=== PATIENT | female | born 1935 | race Caucasian/White ===

== ENCOUNTER 2020-07-01 15:27 | Inpatient (IN) | payer OTHER ==
[2020-07-01] VITALS (8 sets, daily range): BP systolic 60–104; BP diastolic 41–71
[~2020-07-01] VITALS: Ht 160 cm; Wt 59.0 kg
[2020-07-01] MEDS ORDERED: DOCU-141 PO (15:50)
[2020-07-01] MEDS ORDERED: ACET-2605 PO (15:50)
[2020-07-01] MEDS ORDERED: METO25TA20 PO (15:50)
[2020-07-01] MEDS ORDERED: CLOP75TA15 PO (15:50)
[2020-07-01] MEDS ORDERED: NA P133E RC (15:50)
[2020-07-01] MEDS ORDERED: CHOL100062 PO (15:50)
[2020-07-01] MEDS ORDERED: ACET-868 PO (15:50)
[2020-07-01] MEDS ORDERED: OMEG-167 PO (15:50)
[2020-07-01] MEDS ORDERED: BISA10SU11 RC (15:50)
[2020-07-01] MEDS ORDERED: ASPI-1169 PO (15:50)
[2020-07-01] MEDS ORDERED: ASCO-352 PO (15:50)
[2020-07-01] MEDS ORDERED: MAGN400O6 PO (15:50)
[2020-07-01] MEDS ORDERED: ATOR40TA PO (15:50)
[2020-07-01] MEDS ORDERED: ENAL2.5T17 PO (15:50)
[2020-07-01] MEDS ORDERED: MULT-447 PO (15:50)
--- NOTE | 2020-07-01 16:21 | NUR ---
Patient jonathan, from sn[facility], noted blood in stool and hypotension. On room air, breathing evenly and unlabored. Connected to the monitor and pulse ox. Kept comfortable, will continue to monitor accordingly. IV access initiated and blood drawned and sent to lab.
[2020-07-01] MEDS ORDERED: CEFTRIAXONE 1GM BAG (ER ONLY) 50 ML IV ONE (16:24)
[2020-07-01] MEDS ORDERED: CEFTRIAXONE 1 G in IV D5W 50 ML IV ONE (16:30)
[2020-07-01 16:49] LABS: BASOPHILS # (AUTO) 0.1 /CMM (0.0-0.2); BASOPHILS % (AUTO) 0.4 % (0.0-2.0); EOSINOPHILS % (AUTO) 0.4 % (0.0-6.0); HEMATOCRIT 34 % (33-45); HEMOGLOBIN 11.1 g/dL (11.5-14.8); LYMPHOCYTES # (AUTO) 3.5 /CMM (0.8-4.8); LYMPHOCYTES % (AUTO) 18.3 % (20.0-44.0); MEAN CORPUSCULAR HGB CONC 32 g/dl (31.0-36.0); MEAN CORPUSCULAR VOLUME 96 fL (82-100); MONOCYTES % (AUTO) 5.2 % (2.0-12.0); NEUTROPHILS # (AUTO) 14.3 /CMM (1.8-8.9); NEUTROPHILS % (AUTO) 75.7 % (43.0-81.0); PLATELET COUNT (AUTO) 344 /CMM (150-450); RED BLOOD CELL COUNT(AUTO) 3.58 MIL/uL (4.0-5.2); WHITE BLOOD COUNT (AUTO) 18.9 K/uL (4.3-11.0)
[2020-07-01 17:22] LABS: ALANINE AMINOTRANSFERASE 25 U/L (12-78); ALBUMIN 2.9 g/dL (3.4-5.0); ALKALINE PHOSPHATASE 65 U/L (46-116); ASPARTATE AMINOTRANSFERASE 25 U/L (15-37); BILIRUBIN,TOTAL 0.3 mg/dL (0.2-1.0); CARBON DIOXIDE 17 mmol/L (21-32); CHLORIDE 107 mmol/L (98-107); CREATININE 1.1 mg/dL (0.6-1.3); GLUCOSE 231 mg/dL (74-106); LIPASE 85 U/L (73-393); POTASSIUM 4.6 mmol/L (3.5-5.1); SODIUM SERUM 142 mmol/L (136-145); UREA NITROGEN, BLOOD 30 mg/dL (7-18)
[2020-07-01 17:44] LABS: BILIRUBIN,DIRECT 0.1 mg/dL (0.0-0.2)
[2020-07-01] MEDS ORDERED: PEG 3350/NA SULF,BICARB,CL/KCL 4,000 ML BOTTLE PO ONE (18:00)
[2020-07-01] MEDS ORDERED: ACETAMINOPHEN 325 MG TABLET PO PRN (18:00)
[2020-07-01] MEDS ORDERED: HYDROCODONE/APAP 5/325MG TABLET PO PRN (18:00)
[2020-07-01] MEDS ORDERED: Z GUARD REMEDY 2 OZ OINT TP PRN (18:00)
[2020-07-01] MEDS ORDERED: ONDANSETRON HCL/PF 4 MG/2 ML VIAL IVP PRN (18:00)
[2020-07-01] MEDS: BLOOD SUGAR DIAGNOSTIC 1 EACH STRIP IN SCH (18:00)
[2020-07-01] MEDS ORDERED: DEXTROSE 50%-WATER 50 ML DISP.SYRIN IV PRN (18:00)
[2020-07-01] MEDS ORDERED: ZOLPIDEM TARTRATE 5 MG TABLET PO PRN (18:00)
--- NOTE | 2020-07-01 18:07 | NUR ---
RAPID COVID NEGATIVE
--- NOTE | 2020-07-01 18:18 | NUR ---
MADE HOUSE SUP AWARE OF COVID RESULT, ASKED FOR ICU BED
[2020-07-01] MEDS: METRONIDAZOLE 500MG/ NS 100ML 500 MG in PREMIX 1 EA IV SCH (18:30)
[2020-07-01] MEDS ORDERED: CIPROFLOXACIN IV RTU 200 ML IV ONE (18:34)
[2020-07-01] MEDS ORDERED: METRONIDAZOLE 500MG/ NS 100ML 100 ML IV ONE (18:34)
[2020-07-01] MEDS ORDERED: IOHEXOL-350 100 ML VIAL IV ONE (18:54)
[2020-07-01] MEDS ORDERED: IV NS 0.9% 250 ML IV ONE (18:54)
--- NOTE | 2020-07-01 19:13 | NUR ---
patient came back from ct
--- NOTE | 2020-07-01 19:18 | NUR ---
blood sugar checked 162 patient is NPO.
[2020-07-01 19:55] LABS: HEMOGLOBIN 9.3 g/dL (11.5-14.8)
[2020-07-01] MEDS: CIPROFLOXACIN IV RTU 400 MG in PREMIX 1 EA IV SCH (20:06)
--- NOTE | 2020-07-01 20:40 | NUR ---
REPORT GIVEN TO YUSEF SHIN FOR JAVIER, PT WILL BE TRANSPORTED TO ICU
--- NOTE | 2020-07-01 20:43 | NUR ---
PER AM SHIFT, GOLYTELY NOT AVAILABLE, PHARMACY WILL BRING ONCE AVAIL
--- NOTE | 2020-07-01 21:15 | NUR ---
PT PULEED OUT NGT AND R HAND 22IV. ATTEMPTED TO INSERT NGT. UNSUCCESSFUL AT THIS TIME, PT TOO AGITATED. ENDORSED TO ICU NURSE AT THIS TIME. MINIMAL OUTPUT OBSERVED IN CONTAINER.
--- NOTE | 2020-07-01 21:20 | NUR ---
JAVASCRIPT DEVELOPERGI TECHNICIAN NOTES RECEIVED PATIENT FROM ER VIA [facility] [place] - 2RNEY. ON O2 VIA NC @ 2LPM, TOLERATING WELL, NO SHORTNESS OF BREATH NOTED. MIDLINE IV ACCESS TO BE INSERTED. PATIENT NOTED WITH SMALL BM WITH BRIGHT RED BLOOD. RIGHT HAND PERIPHERAL IV INFILTRATED, REMOVED, PRESSURE DRESSING APPLIED Addendum: 07/02/20 at 0249 by SHANAE BALLESTEROS RN SINUS TACHYCARDIA ON MONITOR, HR 130 BPM. PATIENT AWAKE AND ALERT ALERT, BUT UNABLE TO FOLLOW COMMANDS WILL MONITOR CLOSELY
--- NOTE | 2020-07-01 21:22 | NUR ---
PT TRANSPORTED TO ICU
--- NOTE | 2020-07-01 22:00 | NUR ---
PEDIATRIC AUDIOLOGIST NOTES CALLED AND SPOKE TO PATIENT'S SON, CONSENT FOR ANESTHESIA OBTAINED. WILL MONITOR CLOSELY
[2020-07-01] MEDS: PANTOPRAZOLE 40 MG VIAL IV SCH (22:22)
[2020-07-01] MEDS: IV NS 0.9% 1,000 ML IV PRN (22:25)
[2020-07-01] MEDS ORDERED: PHENYLEPHRINE 10 MG/ML VIAL ONE (22:32)
[2020-07-01] MEDS: PHENYLEPHRINE 50 MG in IV NS 0.9% 245 ML IV PRN (22:50)
--- NOTE | 2020-07-01 23:20 | NUR ---
ICU/RN- CALLED [facility]( TEL. [phone]) FOR INFLUENZA AND PNEUMONIA VACCINE BUT THE RECORDS NOT AVAILABLE AT THIS TIME. THE FACILITY RN STATED TO CALL BACK IN AM. WILL ENDORSE TO DAYSHIFT RN TO FOLLOW UP.
[2020-07-02] VITALS (141 sets, daily range): BP systolic 65–132; BP diastolic 26–86
[2020-07-02] MEDS: INSULIN REGULAR, HUMAN 100 UNIT/ML 3 ML VIAL SQ PRN ×2 (00:03→06:50)
[2020-07-02] MEDS: BLOOD SUGAR DIAGNOSTIC 1 EACH STRIP IN SCH ×4 (00:21→18:15)
[2020-07-02] MEDS: METRONIDAZOLE 500MG/ NS 100ML 500 MG in PREMIX 1 EA IV SCH ×2 (00:22→07:23)
[2020-07-02 01:31] LABS: HEMOGLOBIN 9.4 g/dL (11.5-14.8)
[2020-07-02] MEDS ORDERED: LIDOCAINE 2% JEL UROJET 10 ML MM ONE (02:00)
--- NOTE | 2020-07-02 02:00 | NUR ---
SURVEYOR OIL WELL DIRECTIONAL NOTES ATTEMPTED TO REINSERT NG TUBE USING UROJET/LIDOCAINE. ULTIMATELY, UNSUCCESSFUL IN INSERTING NG TUBE. OGTUBE INSERTED, HOWEVER PATIENT CONSTANTLY USING HER TONGUE TO PUSH THE OGTUBE OUT, REFUSING TO TAKE GOLYETELY PO.
[2020-07-02 05:13] LABS: HEMATOCRIT 28 % (33-45); HEMOGLOBIN 9.1 g/dL (11.5-14.8); LYMPHOCYTES # (AUTO) 1.2 /CMM (0.8-4.8); LYMPHOCYTES % (AUTO) 3.9 % (20.0-44.0); MEAN CORPUSCULAR HGB CONC 33 g/dl (31.0-36.0); MEAN CORPUSCULAR VOLUME 94 fL (82-100); MONOCYTES # (AUTO) 1.7 /CMM (0.1-1.30); MONOCYTES % (AUTO) 5.4 % (2.0-12.0); NEUTROPHILS # (AUTO) 28.1 /CMM (1.8-8.9); NEUTROPHILS % (AUTO) 90.7 % (43.0-81.0); PLATELET COUNT (AUTO) 327 /CMM (150-450); RED BLOOD CELL COUNT(AUTO) 2.95 MIL/uL (4.0-5.2)
[2020-07-02 05:36] LABS: CALCIUM, SERUM 8.5 mg/dL (8.5-10.1); CREATININE 1.2 mg/dL (0.6-1.3); MAGNESIUM 1.8 mg/dL (1.8-2.4); PHOSPHORUS 3.3 mg/dL (2.5-4.9); POTASSIUM 3.9 mmol/L (3.5-5.1)
[2020-07-02] MEDS ORDERED: SORBITOL SOLUTION 30 ML PO ONE (06:00)
--- NOTE | 2020-07-02 06:00 | NUR ---
TOOL CHECKER NOTES SORBITOL NOT YET ADMINISTERED DUE TO DRUG NOT BEING DELIVERED TO UNIT. ALSO, PATIENT CURRENTLY RECEIVING GOLYETELY
[2020-07-02 06:14] LABS: BAND % (MANUAL) 3 % (0.0-5.0); LYMPHOCYTES % (MANUAL) 7 % (16-48); MONOCYTES % (MANUAL) 10 % (0-11.0); NEUTROPHILS % (MANUAL) 80 (42-76)
--- NOTE | 2020-07-02 07:00 | NUR ---
SAMPLE WASHER NOTES APPROXIMATELY 1250 ML OUT OF 4000ML OF GOLYTELY ADMISNISTERED VIA OGT. PATIENT UNABLE TO TOLERATE HIGHER DOSE, HAVING ELEVATED GASTRIC RESIDUALS FROM 150-200ML. PATIENT WITH MULTIPLE BLOODY DARK RED STOOLS. OGT REMAINS PATENT AND INTACT, WITH BITE ELVI IN PLACE TO PREVENT PATIENT FROM DISLODGING OG TUBE
[2020-07-02] MEDS: CIPROFLOXACIN IV RTU 400 MG in PREMIX 1 EA IV SCH (07:34)
[2020-07-02] MEDS: PANTOPRAZOLE 40 MG VIAL IV SCH ×2 (08:19→21:47)
--- NOTE | 2020-07-02 09:00 | NUR ---
ICU/RN PT IS RESTING IN THE BED. ON 6 L N/C .SAT O2-100%.AFEBRILE.HAS SINUS TACHYCARDIA.ON NEOSYNEPHRINE DRIP .NO PAIN REPORTED AT THIS TIME.PT OG TUBE .RIGHT UPPER ARM MID LINE.INCONTINENT.PT IS NPO WAITING FOR EGD AND COLOSTOMY.DOES NOT HAVE GOOD BOWEL PREPARATION .MD NOTIFIED.COLONOSCOPY CANCELLED.DUE MEDS ARE GIVEN ORDERED.
[2020-07-02] MEDS: IV NS 0.9% 1,000 ML IV PRN ×2 (10:36→22:32)
[2020-07-02] MEDS: PHENYLEPHRINE 50 MG in IV NS 0.9% 245 ML IV PRN (11:44)
[2020-07-02] MEDS ORDERED: MIDAZOLAM HCL 2 MG/2ML VIAL ONE (12:04)
[2020-07-02] MEDS: MEROPENEM 1 G in IV NS 0.9% 100 ML IV SCH (12:32)
[2020-07-02] MEDS ORDERED: MEROPENEM 500 MG in IV NS 0.9% 50 ML IV SCH (13:00)
--- NOTE | 2020-07-02 13:00 | NUR ---
ICU/RN PT IS POST EGD.OG TUBE REMOVED .OK TO START DIET .PT BP DECREASED POST EGD.VERSED FOR SEDATION WAS GIVEN.HR DECREASED UP TO 39 BPM.MD NOTIFIED. NEOSYNEPHRINE DRIP INCREASED.CONTINUE MONITORING.OK TO RESTART MEDS.
[2020-07-02 13:29] LABS: ABG BASE EXCESS -3.3 mmol/L; ABG OXYGEN SATURATION 95.7 % (92.0-98.5); ABG PCO2 28.7 mmHg (35.0-45.0); ABG PO2 80.7 mmHg (75.0-100.0); AaDO2 85.1 mmHg; COHb 0.3 % (0.5-1.5); MetHb 0.5 % (0.0-1.5); O2Hb 94.9 % (94.0-97.0); SITE, ABG Right Radial
[2020-07-03] VITALS (99 sets, daily range): BP systolic 74–145; BP diastolic 25–69
[2020-07-03] MEDS ORDERED: PHENYLEPHRINE 10 MG/ML VIAL ONE (00:01)
[2020-07-03] MEDS: PHENYLEPHRINE 50 MG in IV NS 0.9% 245 ML IV PRN ×4 (00:12→23:56)
[2020-07-03] MEDS: MEROPENEM 1 G in IV NS 0.9% 100 ML IV SCH ×2 (00:19→13:31)
[2020-07-03] MEDS: BLOOD SUGAR DIAGNOSTIC 1 EACH STRIP IN SCH ×4 (00:52→17:46)
--- NOTE | 2020-07-03 07:30 | NUR ---
RN OPENING NOTES, PATIENT PRESENT IN BED, A/OX1, CONFUSED, TURKISH SPEAKER, ON RA. SPO2 IS 95%, NO SOB, DISTRESS NOTED,DENIES PAIN, REFUSED REPOSITIONING, DENTURES AT BED SITE, FREDERICK CATH IN PLACE, DRAINING YELLOW URINE BY GRAVITY, SKIN IS INTACT, R UA MIDLINE, FLUSHED AND INTACT, SR-SB ON TELEMONITOR, RECEIVING OMID AT 2.0 , TOLERATING WELL, BP MAINTAINED ORDERED, SAFETY MEASURES IN PLACE, BILAT SOFT RESTRAINS IN LACE, SKIN CHECKED FOR CIRCULATION, BED IS LOCKED, LOWEST POSITION, CONT TO MONITOR
[2020-07-03] MEDS: PANTOPRAZOLE 40 MG VIAL IV SCH ×2 (08:57→21:24)
[2020-07-03 10:17] LABS: BASOPHILS % (AUTO) 0.2 % (0.0-2.0); EOSINOPHILS % (AUTO) 0.3 % (0.0-6.0); LYMPHOCYTES # (AUTO) 2.3 /CMM (0.8-4.8); LYMPHOCYTES % (AUTO) 11.4 % (20.0-44.0); MEAN CORPUSCULAR HGB CONC 33 g/dl (31.0-36.0); MEAN CORPUSCULAR VOLUME 94 fL (82-100); MONOCYTES # (AUTO) 2.2 /CMM (0.1-1.30); MONOCYTES % (AUTO) 10.7 % (2.0-12.0); NEUTROPHILS # (AUTO) 15.8 /CMM (1.8-8.9); NEUTROPHILS % (AUTO) 77.4 % (43.0-81.0); PLATELET COUNT (AUTO) 246 /CMM (150-450); RED BLOOD CELL COUNT(AUTO) 2.15 MIL/uL (4.0-5.2); WHITE BLOOD COUNT (AUTO) 20.4 K/uL (4.3-11.0)
[2020-07-03 10:30] LABS: HEMATOCRIT 20 % (33-45); HEMOGLOBIN 6.7 g/dL (11.5-14.8)
[2020-07-03] MEDS ORDERED: FUROSEMIDE 20 MG/2 ML VIAL IV ONE (11:00)
[2020-07-03 13:02] LABS: LYMPHOCYTES % (MANUAL) 8 % (16-48); MONOCYTES % (MANUAL) 6 % (0-11.0); NEUTROPHILS % (MANUAL) 86 (42-76)
[2020-07-03 14:10] LABS: BASOPHILS % (AUTO) 0.3 % (0.0-2.0); EOSINOPHILS % (AUTO) 0.2 % (0.0-6.0); HEMATOCRIT 21 % (33-45); LYMPHOCYTES # (AUTO) 2.3 /CMM (0.8-4.8); LYMPHOCYTES % (AUTO) 11.8 % (20.0-44.0); MEAN CORPUSCULAR HGB CONC 32 g/dl (31.0-36.0); MEAN CORPUSCULAR VOLUME 94 fL (82-100); MONOCYTES # (AUTO) 1.8 /CMM (0.1-1.30); MONOCYTES % (AUTO) 9.1 % (2.0-12.0); NEUTROPHILS # (AUTO) 15.2 /CMM (1.8-8.9); NEUTROPHILS % (AUTO) 78.6 % (43.0-81.0); PLATELET COUNT (AUTO) 273 /CMM (150-450); RED BLOOD CELL COUNT(AUTO) 2.17 MIL/uL (4.0-5.2); WHITE BLOOD COUNT (AUTO) 19.3 K/uL (4.3-11.0)
[2020-07-03 14:21] LABS: HEMOGLOBIN 6.6 g/dL (11.5-14.8)
--- NOTE | 2020-07-03 14:33 | NUR ---
Received secondary results for Hmg of 6.6, contatced blood bank for blood, patient required to have blood transfusion ID band, per lab, need to place order for type and screen in order to pint labels, order placed, awaiting for blood , charge nurse made aware
--- NOTE | 2020-07-03 16:32 | NUR ---
New band in place, still awaiting for new bag of blood from blood bank
--- NOTE | 2020-07-03 17:12 | NUR ---
Picked up blood from blood bank, transfusion initiated
--- NOTE | 2020-07-03 19:06 | NUR ---
RN CLOSING NOTES PATIENT REMAINS IN BED, RECEIVING BLOOD, TOLERATING WELL, NO ACUTE CHANGES DURING SHIFT, PLACED ON NPO DUE GI BLEED, CLEANED AND REPOSITIONED, WILL ENDORSE TO NEXT SHIFT FOR JAVIER
--- NOTE | 2020-07-03 21:00 | NUR ---
ICU/SNOWMOBILE MECHANIC PICC LINE NURSE HERE TO PLACE THE LINE TO THE RIGHT UPPER ARM.
--- NOTE | 2020-07-03 22:30 | NUR ---
ICU/COMFORT STATION SUPERVISOR POSITIVE PLACEMENT OF THE RIGHT UPPER ARM PICC LINE. PICC LINE NURE MAKE AWARE, SAID OK TO USE.
[2020-07-04] VITALS (52 sets, daily range): BP systolic 79–156; BP diastolic 25–72
[2020-07-04] MEDS: BLOOD SUGAR DIAGNOSTIC 1 EACH STRIP IN SCH ×4 (00:41→17:27)
[2020-07-04] MEDS: MEROPENEM 1 G in IV NS 0.9% 100 ML IV SCH ×2 (00:43→14:40)
[2020-07-04] MEDS: IV NS 0.9% 250 ML IV PRN (01:23)
--- NOTE | 2020-07-04 01:23 | NUR ---
ICU/FABRICATION WELDER BLOOD SUGAR IS 102, THERE S NO COVERAGE FOR THIS.
--- NOTE | 2020-07-04 01:30 | NUR ---
ICU/LIBRARY ASSISTANT REPEAT H/H WAS DONE DUE TO H/H WAS VERY LOW, WHICH CAME UP TO 8.5. PT HAS MORNING LABS. WILL CONTINUE TO MONITOR
[2020-07-04 04:42] LABS: HEMOGLOBIN 8.5 g/dL (11.5-14.8)
[2020-07-04 05:18] LABS: CALCIUM, SERUM 7.9 mg/dL (8.5-10.1); CREATININE 0.8 mg/dL (0.6-1.3)
--- NOTE | 2020-07-04 05:30 | NUR ---
ICU/PRE CODER STOPPED THE OMID FOR THE BLOOD PRESSURE GREATER THAN 90'S. WILL CONTINUE TO MONITOR THIS PT'S BP.
[2020-07-04 05:47] LABS: POTASSIUM 2.7 mmol/L (3.5-5.1)
--- NOTE | 2020-07-04 06:28 | NUR ---
ICU/MEDICAL CENTER DIRECTOR CALLED THE SENIOR LINUX ADMINISTRATOR MD MANUEL FOR POTASSIUM OF 2.8, THERE IS NO CALL BACK. CHARGE NURSE MADE AWARE HAVE ATTEMPTED TO CALL TWICE.
[2020-07-04] MEDS ORDERED: POTASSIUM CL. PREMIX PERIPHER. 50 ML IV SCH ×2 (07:30→17:00)
--- NOTE | 2020-07-04 07:30 | NUR ---
DEPUTY COURT OPENING NOTES Patient is alert and forgetfull, received in bed and not in any s/s of respiratory distress. No c/o pain or discomfort. 02 sat 97% on room air, Head of bed kept elevated. Bilateral soft wrist restraints noted with no s/s of skin breakdown. Will continue to monitor. call light with in reach.Safety and fall precautions observed.
[2020-07-04] MEDS: PANTOPRAZOLE 40 MG VIAL IV SCH ×2 (08:02→20:54)
--- NOTE | 2020-07-04 09:23 | NUR ---
BUSHEL GIRL NOTES Clarified potassium order [facility] Dr Collazo. Informed MD of k+ level and received order to give patient 5 more bags of K+ ( total of 6). Patient was already given one bag of kcl 10 meq. Order noted . Pharmacy aware.
[2020-07-04] MEDS: POTASSIUM CL. PREMIX PERIPHER. 50 ML IV SCH ×6 (09:52→16:44)
[2020-07-04] MEDS: INSULIN REGULAR, HUMAN 100 UNIT/ML 3 ML VIAL SQ PRN ×2 (11:37→17:27)
--- NOTE | 2020-07-04 12:48 | NUR ---
Received call from Dr Henderson and updated MD regarding patient. Per MD continue with current dose of protonix and monitor BM's.
--- NOTE | 2020-07-04 19:55 | NUR ---
SENIOR INFORMATION DEVELOPER CLOSING NOTES Patient is alert and forgetfull and but oriented compared to am. Patient is in bed and not in any s/s of respiratory distress. No c/o pain or discomfort. 02 sat 99% on room air, Head of bed kept elevated. Bilateral soft wrist restraints noted with no s/s of skin breakdown. Endorsed to next shift for JAVIER. Patient received 60 meq of KCL during shift. Picc line to JOHN PAUL noted with no s/s of skin breakdown. Patient did not need her major drip during shift and was able to maintain BP wnl. call light with in reach.Safety and fall precautions observed.
--- NOTE | 2020-07-04 20:00 | NUR ---
Received patient awake alert follows simple commands but forgetful/confused. Dx: GI Bleed.No active bleeding noted.Respiration even and unlabored.On RA spo2 96%.No respiratory distress noted.Denies pain.SR per tele monitoring.VSS. Maintained HOB elevated.NS TKO infusing via JOHN PAUL PICC LINE and site intact. Turned and repositioned.
[2020-07-04 20:35] LABS: BILIRUBIN,URINE SMALL (NEGATIVE); COLOR,URINE YELLOW (YELLOW); LEUKOCYTE ESTERASE ,URINE SMALL (NEGATIVE); NITRITE, URINE NEGATIVE (NEGATIVE); PROTEIN,URINE TRACE mg/dl (NEGATIVE); UGLUCOSE NEGATIVE (NEGATIVE); UROBILINOGEN,URINE 0.2 EU/dL (0.2)
[2020-07-04 21:06] LABS: BACTERIA,URINE 2+ /HPF (None Seen)
[2020-07-04 21:07] LABS: MUCUS,URINE Few /LPF (None Seen)
[2020-07-04 21:12] LABS: EOSINOPHIL,URINE None Seen
[2020-07-05] VITALS (22 sets, daily range): BP systolic 88–142; BP diastolic 44–72
[2020-07-05] MEDS: BLOOD SUGAR DIAGNOSTIC 1 EACH STRIP IN SCH ×5 (00:24→23:27)
[2020-07-05] MEDS: MEROPENEM 1 G in IV NS 0.9% 100 ML IV SCH ×2 (00:30→12:09)
[2020-07-05] MEDS: IV NS 0.9% 250 ML IV PRN (04:44)
[2020-07-05 04:55] LABS: ALBUMIN 2.2 g/dL (3.4-5.0); BILIRUBIN,TOTAL 0.6 mg/dL (0.2-1.0); CALCIUM, SERUM 7.8 mg/dL (8.5-10.1); CREATININE 0.7 mg/dL (0.6-1.3); MAGNESIUM 1.6 mg/dL (1.8-2.4); PHOSPHORUS 1.7 mg/dL (2.5-4.9); POTASSIUM 3.4 mmol/L (3.5-5.1)
[2020-07-05 05:21] LABS: CREATININE, URINE 205.5 MG/DL (30.0-125.0); URINE TOTAL PROTEIN 69.4 mg/dL (0-11.9)
--- NOTE | 2020-07-05 05:40 | NUR ---
Patient resting .VS remains stable.SR.Remains on RA no respiratory distress noted. AM care done.BM X2 no active bleeding noted.Kept clean and dry.BS wnl.All needs met.
[2020-07-05 05:48] LABS: BASOPHILS % (AUTO) 0.2 % (0.0-2.0); EOSINOPHILS % (AUTO) 2.9 % (0.0-6.0); HEMATOCRIT 24 % (33-45); HEMOGLOBIN 8.2 g/dL (11.5-14.8); LYMPHOCYTES # (AUTO) 1.5 /CMM (0.8-4.8); LYMPHOCYTES % (AUTO) 15.8 % (20.0-44.0); MEAN CORPUSCULAR HGB CONC 35 g/dl (31.0-36.0); MEAN CORPUSCULAR VOLUME 92 fL (82-100); MONOCYTES # (AUTO) 0.7 /CMM (0.1-1.30); MONOCYTES % (AUTO) 7.1 % (2.0-12.0); NEUTROPHILS # (AUTO) 7.2 /CMM (1.8-8.9); PLATELET COUNT (AUTO) 182 /CMM (150-450); RED BLOOD CELL COUNT(AUTO) 2.56 MIL/uL (4.0-5.2); WHITE BLOOD COUNT (AUTO) 9.7 K/uL (4.3-11.0)
--- NOTE | 2020-07-05 07:30 | NUR ---
CONCRETE MIXER TRUCK DRIVER OPENING NOTES Patient is alert and forgetfull, received in bed and not in any s/s of respiratory distress. No c/o pain or discomfort. 02 sat 97% on room air, Head of bed kept elevated. Bilateral soft wrist restraints noted with no s/s of skin breakdown. Will continue to monitor. call light with in reach.Safety and fall precautions observed.
[2020-07-05] MEDS: PANTOPRAZOLE 40 MG VIAL IV SCH ×2 (08:51→21:20)
[2020-07-05] MEDS ORDERED: POTASSIUM PHOSPHATE MM 15 MMOL in IV NS 0.9% 250 ML IV SCH (11:00)
[2020-07-05] MEDS ORDERED: Magnesium 1GM/D5W 100ML PREMIX 100 ML IV SCH (11:00)
[2020-07-05] MEDS: INSULIN REGULAR, HUMAN 100 UNIT/ML 3 ML VIAL SQ PRN ×2 (12:10→17:40)
[2020-07-05] MEDS ORDERED: IV D5W 1,000 ML IV ONE (14:00)
[2020-07-05] MEDS: Magnesium 1GM/D5W 100ML PREMIX 100 ML IV SCH ×2 (15:17→17:40)
--- NOTE | 2020-07-05 18:50 | NUR ---
Patient transferred to MED SURG via gurney with tele box. No s/s of respiraotry distress. No c/o pain or discomfort.Report given to RN bedside( [facility])
--- NOTE | 2020-07-05 18:52 | NUR ---
RECEIVED PT AWAKE IN BED AT THIS TIME. AOX4. NO SOB NOTED, NO S/S OF ANY ACUTE DISTRESS BOILER WASHER RECEIVING NOTES PT TRANSPORTED VIA GURNEY TO UNIT AT THIS TIME WITH ACLS PROTOCOL IN PLACE. AOX1-2, WITH PERIODS OF CONFUSION. PT STABLE ON RA. PT ON EXTERNAL PEN MAKER READING SR 89. NO SOB NOTED, NO SIGN OF ANY ACUTE DISTRESS NOTED, NO C/O PAIN AT THIS TIME. PT NOTED WITH FREDERICK CATHETER DRAINING TO GRAVITY CLEAR YELLOW URINE OUTPUT. JOHN PAUL PICC LINE IN PLACE, INTACT, PATENT AND FLUSHING WELL. PT NOTED WITH BILATERAL SOFT WRIST RESTRAINTS, SKIN AROUND RESTRAINTS INTACT, GOOD CIRCULATION, CAPILLARY REFILL <3SECONDS, PULSES PRESENT BILATERALLY. ASPIRATIONS AND SAFETY PRECAUTIONS IN PLACE AND MAINTAINED AT ALL TIMES. BED IN LOWEST LOCKED POSITION, SIDE RAILS UP, HOB ELEVATED, TABLE AND CALL LIGHT WITHIN REACH. ENDORSED TO KIP OSMAN ([employer]OCAD TECHNICIAN).
--- NOTE | 2020-07-05 18:58 | NUR ---
DESIRAE HEEL SPRAYER REPORTED BLOOD CULTURE RESULT (GRAM + RODS) AT THIS TIME, RESULTS READ BACK, ENDORSED TO JACQUI STEAM POWER PLANT OPERATOR RN TO F/U.
--- NOTE | 2020-07-05 19:15 | NUR ---
TELE/RN NOTES BLOOD CULTURE RESULT (GRAM + RODS) RESULTS REPORTED TO MD MANUEL AND LAST CARDENAS, NO NEW ORDERS AT THIS TIME.
--- NOTE | 2020-07-05 19:30 | NUR ---
TELE/RN OPENING NOTES RECEIVED PATIENT IN BED RESTING. PATIENT IS ALERT AND ORIENTED X 1-2. PATIENT BREATHING IS EVEN AND UNLABORED. PATIENT IN NO SIGNS OF RESPIRATORY DISTRESS OR SOB NOTED. PATIENT HAS IV ACCESS INTACT FLUSHING WELL. PATIENT IN NO ACUTE DISTRESS. BILATERAL SOFT WRIST RESTRAINTS IN PLACE, GOOD HAND CIRCULATION. F/C INTACT DRAINING WELL. SAFETY MEASURES ARE IN PLACE, BED IS LOCKED AND PLACED IN THE LOW POSITION, SIDE RAILS UP X 3, CALL LIGHT WITHIN REACH. WILL CONTINUE TO MONITOR.
[2020-07-06] VITALS: BP 124/84
[2020-07-06 04:00] VITALS: BP 151/68
[2020-07-06] MEDS: BLOOD SUGAR DIAGNOSTIC 1 EACH STRIP IN SCH ×3 (06:26→18:17)
--- NOTE | 2020-07-06 06:55 | NUR ---
TELE/RN CLOSING NOTES PATIENT IN BED RESTING. PATIENT IS ALERT AND ORIENTED X 1-2. PATIENT BREATHING IS EVEN AND UNLABORED. PATIENT IN NO SIGNS OF RESPIRATORY DISTRESS OR SOB NOTED. PATIENT HAS IV ACCESS INTACT FLUSHING WELL RUNNING D5 AT 50CC/HR. PATIENT IN NO ACUTE DISTRESS. BILATERAL SOFT WRIST RESTRAINTS IN PLACE, GOOD HAND CIRCULATION. F/C INTACT DRAINING WELL. SAFETY MEASURES ARE IN PLACE, BED IS LOCKED AND PLACED IN THE LOW POSITION, SIDE RAILS UP X 3, CALL LIGHT WITHIN REACH. WILL ENDORSE CARE TO DAY SHIFT NURSE.
--- NOTE | 2020-07-06 07:00 | NUR ---
STRATEGIC BUSINESS DEVELOPMENT OPENING NOTES RECEIVED PT AWAKE IN BED AT THIS TIME. AOX1-2, SOMETIMES CONFUSE. PT STABLE ON RA. PT ON EXTERNAL PROFILING MACHINE SET UP OPERATOR TOOL READING SR 66. NO SOB NOTED, NO SIGN OF ANY ACUTE DISTRESS NOTED, NO S/O PAIN AT THIS TIME. PT NOTED WITH FREDERICK CATHETER DRAINING TO GRAVITY CLEAR YELLOW URINE OUTPUT. JOHN PAUL PICC LINE IN PLACE AND LEFT HAND G#22 BOTH INTACT, PATENT AND FLUSHING WELL. PT NOTED WITH BILATERAL SOFT WRIST RESTRAINTS, SKIN AROUND RESTRAINTS INTACT, GOOD CIRCULATION, CAPILLARY REFILL <3SECONDS, PULSES PRESENT BILATERALLY. ASPIRATIONS AND SAFETY PRECAUTIONS IN PLACE AND MAINTAINED AT ALL TIMES. BED IN LOWEST LOCKED POSITION, SIDE RAILS UP, HOB ELEVATED, TABLE AND CALL LIGHT WITHIN REACH. WILL CONTINUE TO MONITOR
[2020-07-06 07:02] LABS: BASOPHILS % (AUTO) 0.2 % (0.0-2.0); EOSINOPHILS % (AUTO) 4.2 % (0.0-6.0); HEMATOCRIT 26 % (33-45); LYMPHOCYTES # (AUTO) 1.6 /CMM (0.8-4.8); LYMPHOCYTES % (AUTO) 15.9 % (20.0-44.0); MEAN CORPUSCULAR HGB CONC 34 g/dl (31.0-36.0); MEAN CORPUSCULAR VOLUME 92 fL (82-100); MONOCYTES # (AUTO) 0.7 /CMM (0.1-1.30); MONOCYTES % (AUTO) 7.2 % (2.0-12.0); NEUTROPHILS # (AUTO) 7.2 /CMM (1.8-8.9); NEUTROPHILS % (AUTO) 72.5 % (43.0-81.0); PLATELET COUNT (AUTO) 216 /CMM (150-450); RED BLOOD CELL COUNT(AUTO) 2.87 MIL/uL (4.0-5.2); WHITE BLOOD COUNT (AUTO) 9.9 K/uL (4.3-11.0)
[2020-07-06 07:09] LABS: ALBUMIN 2.3 g/dL (3.4-5.0); BILIRUBIN,TOTAL 0.5 mg/dL (0.2-1.0); CALCIUM, SERUM 7.7 mg/dL (8.5-10.1); CREATININE 0.6 mg/dL (0.6-1.3); MAGNESIUM 2.1 mg/dL (1.8-2.4); PHOSPHORUS 2.4 mg/dL (2.5-4.9); POTASSIUM 3.1 mmol/L (3.5-5.1); TOTAL PROTEIN, SERUM 5.3 g/dL (6.4-8.2)
[2020-07-06 08:00] VITALS: BP 197/91
[2020-07-06] MEDS: PANTOPRAZOLE 40 MG VIAL IV SCH ×2 (08:41→21:20)
[2020-07-06] MEDS ORDERED: POTASSIUM CHLORIDE 20 MEQ TAB.PRT.SR PO ONE (09:30)
[2020-07-06] MEDS: IV NS 0.9% 250 ML IV PRN (11:49)
[2020-07-06 13:00] VITALS: BP 123/69
[2020-07-06] MEDS ORDERED: POTASSIUM PHOSPHATE MM 15 MMOL in IV NS 0.9% 250 ML IV SCH (13:00)
--- NOTE | 2020-07-06 17:20 | NUR ---
PT BILATERAL SOFT WRIST RESTRAINTS VACATION PROVIDED PER ORDER AT THIS TIME. WILL CONTINUE TO MONITOR.
--- NOTE | 2020-07-06 17:50 | NUR ---
PT NOTED PULLING ON IV ACCESS, JUAN. CHARGE NURSE MADE AWARE, PER JUAN APPLY MITTENS. ORDERS CARRIED OUT. WILL CONTINUE TO MONITOR
--- NOTE | 2020-07-06 18:54 | NUR ---
PT ABLE TO GET MITTENS OFF AND PULLING ON IV. SOFT BILATERAL SOFT WRIST RESTRAINTS, READMINISTERED PER ODER, WILL CONTINUE TO MONITOR
--- NOTE | 2020-07-06 19:30 | NUR ---
TELE/RN OPENING NOTES RECEIVED PATIENT IN BED RESTING. PATIENT IS ALERT AND ORIENTED X 1-2. PATIENT BREATHING IS EVEN AND UNLABORED. PATIENT IN NO SIGNS OF RESPIRATORY DISTRESS OR SOB NOTED. PATIENT HAS IV ACCESS INTACT FLUSHING WELL. PATIENT IN NO ACUTE DISTRESS. BILATERAL SOFT WRIST RESTRAINTS IN PLACE, GOOD HAND CIRCULATION, WILL MONITOR AND ASSESS PATIENT OFF RESTRAINT. F/C INTACT DRAINING WELL. SAFETY MEASURES ARE IN PLACE, BED IS LOCKED AND PLACED IN THE LOW POSITION, SIDE RAILS UP X 3, CALL LIGHT WITHIN REACH. WILL CONTINUE TO MONITOR.
--- NOTE | 2020-07-06 19:39 | NUR ---
RN CLOSING NOTES PT AWAKE IN BED AT THIS TIME. PT REMAINED STABLE THROUGHOUT SHIFT. ALL CARE, NEED, MEDICATIONS AND TREATMENT ADMINISTERED ANTICIPATED PER ORDER. PT KEPT CLEAN AND DRY. FREDERICK CATHETER CARE PROVIDE. PT REPOSITIONED Q2HR AND PRN.BILATERAL SOFT WRIST RESTRAINTS ASSESSED, GOOD CIRCULATION NOTED, CAPILLARY REFILL<3 SECONDS, PULSES PRESENT BILATERALLY, SKIN AROUND RESTRAINTS INTACT. ASPIRATION, RESPIRATION AND SAFETY PRECAUTION IN PLACE AND MAINTAINED AT ALL TIMES. BED IN LOWEST LOCKED POSITION, HOB ELEVATED, SIDE RAILS UP X 2, CALL LIGHT AND TABLE WITHIN REACH. ENDORSED TO JACQUI MAINTENANCE JOURNEYMAN NURSE FOR JAVIER
[2020-07-06 20:00] VITALS: BP 131/81
[2020-07-07] MEDS: BLOOD SUGAR DIAGNOSTIC 1 EACH STRIP IN SCH ×5 (00:06→23:52)
--- NOTE | 2020-07-07 06:45 | NUR ---
TELE/RN CLOSING NOTES PATIENT IN BED RESTING. PATIENT IS ALERT AND ORIENTED X 1-2. PATIENT BREATHING IS EVEN AND UNLABORED. PATIENT IN NO SIGNS OF RESPIRATORY DISTRESS OR SOB NOTED. PATIENT HAS IV ACCESS INTACT FLUSHING WELL. PATIENT IN NO ACUTE DISTRESS. F/C INTACT DRAINING WELL. ALL NEEDS HAVE BEEN MET DURING SHIFT. SAFETY MEASURES ARE IN PLACE, BED IS LOCKED AND PLACED IN THE LOW POSITION, SIDE RAILS UP X 3, CALL LIGHT WITHIN REACH. WILL ENDORSE CARE TO DAY SHIFT NURSE.
[2020-07-07 07:05] LABS: CALCIUM, SERUM 7.5 mg/dL (8.5-10.1); CARBON DIOXIDE 22 mmol/L (21-32); CHLORIDE 112 mmol/L (98-107); CREATININE 0.5 mg/dL (0.6-1.3); GLUCOSE 86 mg/dL (74-106); PHOSPHORUS 3.6 mg/dL (2.5-4.9); POTASSIUM 4.2 mmol/L (3.5-5.1); SODIUM SERUM 144 mmol/L (136-145); UREA NITROGEN, BLOOD 5 mg/dL (7-18)
--- NOTE | 2020-07-07 07:11 | NUR ---
RN NOTES PATIENT IN BED RESTING, EYES CLOSED. ALERT AND ORIENTED X1-2, NORTH KOREAN-SPEAKING. BREATHING IS EVEN AND UNLABORED, CURRENTLY ON ROOM AIR, NO SOB. JOHN PAUL PICC LINE INTACT AND PATENT. FREDERICK CATH IN PLACE, DRAINING YELLOW-COLORED URINE. SAFETY MEASURES ARE IN PLACE: BED LOCKED AND PLACED IN THE LOWEST POSITION, SIDE RAILS UP X3, CALL LIGHT WITHIN REACH. WILL CONTINUE TO MONITOR.
[2020-07-07 08:00] VITALS: BP 135/65
[2020-07-07] MEDS: PANTOPRAZOLE 40 MG VIAL IV SCH ×2 (08:18→20:39)
[2020-07-07] MEDS: INSULIN REGULAR, HUMAN 100 UNIT/ML 3 ML VIAL SQ PRN ×2 (11:16→17:32)
[2020-07-07 16:00] VITALS: BP 130/62
--- NOTE | 2020-07-07 18:56 | NUR ---
RN NOTES PATIENT IN BED RESTING, AWAKE AND VERBALLY RESPONSIVE. ALERT AND ORIENTED X1-2, AUSTRALIAN-SPEAKING. BREATHING IS EVEN AND UNLABORED, CONTINUES ON ROOM AIR, NO SOB NOR RESPIRATORY DISTRESS. JOHN PAUL PICC LINE INTACT AND PATENT. FREDERICK CATH IN PLACE, DRAINING YELLOW-COLORED URINE. KEPT CLEAN AND COMFORTABLE. DUE MEDS GIVEN. SAFETY MEASURES MAINTAINED. WILL ENDORSE TO GROUP BURNER MACHINE RN FOR JAVIER.
[2020-07-07 20:00] VITALS: BP 131/67
--- NOTE | 2020-07-07 20:02 | NUR ---
MS RN OPENING NOTE Patient awake in bed, a/o x1-2 with HOB elevated. Speaks cuban only. Breathing even, unlabored on RA. No acute distress. Skin is warm, pink, dry, intact. JOHN PAUL PICC line patent and intact. No signs of redness. Ha catheter draining clear yellow urine. Bed in low position, wheels locked, side rails up x2, call light within reach.
[2020-07-07 22:42] VITALS: BP 131/67
[2020-07-08] MEDS: BLOOD SUGAR DIAGNOSTIC 1 EACH STRIP IN SCH ×3 (05:06→17:04)
--- NOTE | 2020-07-08 06:06 | NUR ---
MS RN CLOSING NOTE Patient awake in bed, a/o x1-2 with HOB elevated. Speaks Monegasque only. Breathing even, unlabored on RA. No acute distress. JOHN PAUL PICC line patent and intact. No signs of redness. Ha catheter draining clear yellow urine. All needs met. Medications administered as ordered. Bed in low position, wheels locked, side rails up x2, call light within reach.
--- NOTE | 2020-07-08 07:33 | NUR ---
MS RN OPENING NOTES RECEIVED PATIENT IN BED, AWAKE, A/O X1. PATIENT ON ROOM AIR; BREATHING EVEN AND UNLABORED, NO SOB NOTED AT THIS TIME. NO COMPLAINS OF PAIN. JOHN PAUL PICC PRESENT AND INTACT. FREDERICK CATH IN PLACE DRAINING CLEAR YELLOW URINE. SAFETY PRECAUTIONS IN PLACE; BED IN LOW POSITION AND LOCKED, RAILS UP X2, CALL LIGHT WITHIN REACH. WILL CONTINUE TO MONITOR PATIENT.
[2020-07-08 08:15] VITALS: BP 124/79
[2020-07-08] MEDS: PANTOPRAZOLE 40 MG VIAL IV SCH ×2 (08:20→21:00)
[2020-07-08 16:00] VITALS: BP 131/93
--- NOTE | 2020-07-08 19:10 | NUR ---
MS RN CLOSING NOTES PATIENT IN BED, AWAKE, A/O X1. PATIENT ON ROOM AIR; BREATHING EVEN AND UNLABORED, NO SOB NOTED DURING SHIFT. NO COMPLAINS OF PAIN. JOHN PAUL PICC PRESENT AND INTACT. ALL NEEDS ATTENDED THROUGHOUT THE DAY. PATIENT AWAITING DISCHARGE; ALL DOCUMENTATION READY; FACILITY CALLED; FAMILY INFORMED. SAFETY PRECAUTIONS IN PLACE; BED IN LOW POSITION AND LOCKED, RAILS UP X2, CALL LIGHT WITHIN REACH. WILL ENDORSE TO ACCOUNT SOLUTIONS ANALYST NURSE.
--- NOTE | 2020-07-08 20:10 | NUR ---
PT PULLED OUT JOHN PAUL PICC LINE WITH CATH INTACT. SITE CLEANED WITH ALCOHOL, GAUZE AND TAPE APPLIED. NO S/S OF BLEEDING. CHARGE NURSE SHERYL KABA
--- NOTE | 2020-07-08 21:16 | NUR ---
PROTONIX IV NOT GIVEN . NO IV SITE
== END 2020-07-08 21:50 | DRG 720 ==
LOC: ER 15:29 → TRANSITION 18:01 → ICU 20:03 → TELE 07-05 18:35 → MED 07-06 12:42
PROVIDERS: ADMIT Nurse Practitioner Acute Care; ATTEND Internal Medicine
PROC: 0DJ08ZZ Inspection of Upper Intestinal Tract, Via Natural or Artificial Opening Endoscopic (ICD-10-PCS; principal; 2020-07-02)
PROC: 05H933Z Insertion of Infusion Device into Right Brachial Vein, Percutaneous Approach (ICD-10-PCS; 2020-07-03)
DX: A41.9 Sepsis, unspecified organism (principal); K22.6 Gastro-esophageal laceration-hemorrhage syndrome; G93.41 Metabolic encephalopathy; E11.9 Type 2 diabetes mellitus without complications; D72.829 Elevated white blood cell count, unspecified; D62 Acute posthemorrhagic anemia; I25.10 Atherosclerotic heart disease of native coronary artery without angina pectoris; N17.0 Acute kidney failure with tubular necrosis; E87.1 Hypo-osmolality and hyponatremia; K29.40 Chronic atrophic gastritis without bleeding; K44.9 Diaphragmatic hernia without obstruction or gangrene; E87.2 Acidosis; J69.0 Pneumonitis due to inhalation of food and vomit; E78.5 Hyperlipidemia, unspecified; E83.39 Other disorders of phosphorus metabolism; E83.42 Hypomagnesemia; E87.6 Hypokalemia; E87.0 Hyperosmolality and hypernatremia; F03.90 Unspecified dementia, unspecified severity, without behavioral disturbance, psychotic disturbance, mood disturbance, and anxiety; I50.9 Heart failure, unspecified; I11.0 Hypertensive heart disease with heart failure; M89.9 Disorder of bone, unspecified; Z79.02 Long term (current) use of antithrombotics/antiplatelets; Z79.899 Other long term (current) drug therapy; R65.21 Severe sepsis with septic shock
CPT/HCPCS: 36415; 36600; 71045-TC; 80048-TC; 80053-TC; 80061-TC; 80076-TC; 81001; 82570-TC; 82962-TC; 83690-TC; 83735-TC; 84100-TC; 84155-TC; 84300-TC; 84484-TC; 85025-TC; 85027-TC; 85730-TC; 86850-TC; 87040-TC; 87081-TC; 87086-TC; 87806; A4216; C1751; C9113; G0378; J0696; J0744; J1815; J1940; J2185; J2250; J2370; J3475; J3480; J3490; J7030; J7050; J7060; P9016-BL; Q9967; U0003

== ENCOUNTER 2023-01-01 14:52 | Inpatient (IN) | payer OTHER ==
[~2023-01-01] VITALS: Ht 162.6 cm; Wt 51.3 kg
[~2023-01-01 14:52] MED LIST: ACET-2605 PO; ACET-868 PO; ASCO-352 PO; ATOR40TA PO; BISA10SU11 RC; CHOL100062 PO; DOCU-141 PO; ENAL2.5T17 PO; MAGN400O6 PO; METO25TA20 PO; MULT-447 PO; NA P133E RC; OMEG-167 PO
[2023-01-01] MEDS ORDERED: IV NS 0.9% 1,000 ML BAG IV ONE ×2 (16:00→21:00)
[2023-01-01] MEDS ORDERED: FERR220S2 PO (16:24)
[2023-01-01] MEDS ORDERED: CRAN250C PO (16:24)
[2023-01-01] MEDS ORDERED: CHOL500052 PO (16:24)
[2023-01-01] MEDS ORDERED: CLOP75TA15 PO (16:24)
[2023-01-01] MEDS ORDERED: LACT-246 PO (16:24)
[2023-01-01] MEDS ORDERED: MEGE400O5 PO (16:24)
[2023-01-01] MEDS ORDERED: MIRT-121 PO (16:24)
[2023-01-01] MEDS ORDERED: OMEP1PAC7 PO (16:24)
[2023-01-01 17:10] LABS: BASOPHILS # (AUTO) 0.2 K/uL (0.0-0.2); BASOPHILS % (AUTO) 2.4 % (0.0-2.0); EOSINOPHILS # (AUTO) 0.3 K/uL (0.0-0.7); EOSINOPHILS % (AUTO) 2.7 % (0.0-6.0); HEMATOCRIT 33 % (33-45); HEMOGLOBIN 10.9 g/dL (11.5-14.8); LYMPHOCYTES # (AUTO) 2.1 K/uL (0.8-4.8); LYMPHOCYTES % (AUTO) 21.8 % (20.0-44.0); MEAN CORPUSCULAR HEMOGLOBIN 31 PG (26.0-33.0); MEAN CORPUSCULAR HGB CONC 33 g/dl (31.0-36.0); MEAN CORPUSCULAR VOLUME 95 fL (82-100); MONOCYTES # (AUTO) 0.8 K/uL (0.1-1.30); MONOCYTES % (AUTO) 8.5 % (2.0-12.0); NEUTROPHILS # (AUTO) 6.4 K/uL (1.8-8.9); NEUTROPHILS % (AUTO) 64.6 % (43.0-81.0); PLATELET COUNT (AUTO) 307 K/uL (150-450); RED CELL DISTRIBUTION WIDTH 14.6 % (11.5-15.0); WHITE BLOOD COUNT (AUTO) 9.8 K/uL (4.3-11.0)
[2023-01-01 17:33] LABS: ALANINE AMINOTRANSFERASE 21 U/L (12-78); ALBUMIN 2.7 g/dL (3.4-5.0); ALKALINE PHOSPHATASE 59 U/L (46-116); ASPARTATE AMINOTRANSFERASE 16 U/L (15-37); BILIRUBIN,DIRECT 0.1 mg/dL (0.0-0.2); BILIRUBIN,TOTAL 0.3 mg/dL (0.2-1.0); CALCIUM, SERUM 8.9 mg/dL (8.5-10.1); CARBON DIOXIDE 17 mmol/L (21-32); CHLORIDE 114 mmol/L (98-107); CREATININE 0.6 mg/dL (0.6-1.3); GLUCOSE 98 mg/dL (74-106); LIPASE 94 U/L (73-393); POTASSIUM 4.2 mmol/L (3.5-5.1); SODIUM SERUM 145 mmol/L (136-145); TOTAL PROTEIN, SERUM 6.9 g/dL (6.4-8.2); UREA NITROGEN, BLOOD 11 mg/dL (7-18)
[2023-01-01 17:59] LABS: LACTIC ACID 2.3 mmol/L (0.4-2.0)
[2023-01-01 20:47] LABS: APPEARANCE,URINE CLOUDY (CLEAR); COLOR,URINE YELLOW (YELLOW)
[2023-01-01] MEDS ORDERED: PIPERACI/TAZO 3.375GM/D5W 50ML PB IV ONE (20:47)
[2023-01-01 20:48] LABS: NITRITE, URINE POSITIVE (NEGATIVE); PROTEIN,URINE 1+ mg/dl (NEGATIVE)
[2023-01-01 20:49] LABS: BILIRUBIN,URINE NEGATIVE (NEGATIVE); BLOOD, URINE 1+ Ery/uL (NEGATIVE); KETONES,URINE NEGATIVE (NEGATIVE); LEUKOCYTE ESTERASE ,URINE 3+ (NEGATIVE); UGLUCOSE NEGATIVE (NEGATIVE); UROBILINOGEN,URINE 0.2 EU/dL (0.2)
[2023-01-01 20:57] LABS: ADD URINE CULTURE YES; BACTERIA,URINE 3+ /HPF (None Seen); SQUAMOUS EPITHELIAL CELL,UR 0-2 /HPF (None Seen); WBC,URINE 51-80 /HPF (0-3)
[2023-01-01 22:07] LABS: ABG PCO2 22.1 mmHg (35.0-45.0); ABG PH 7.454 (7.350-7.450); ABG PO2 68.9 mmHg (75.0-100.0); ABG TOTAL HEMOGLOBIN 11.7 G/dL (12.0-16.0); COHb 0.3 % (0.5-1.5); MetHb 0.3 % (0.0-1.5); O2Hb 93.4 % (94.0-97.0); SITE, ABG Right Radial; VENT MODE, BG Room Air
[2023-01-01] MEDS ORDERED: ACETAMINOPHEN 325 MG TABLET PO PRN (22:30)
[2023-01-01] MEDS ORDERED: ONDANSETRON HCL/PF 4 MG/2 ML VIAL IVP PRN (22:30)
[2023-01-01 22:38] VITALS: BP 147/85; TEMP 98.1; O2SAT 97
[2023-01-01 23:00] VITALS: BP 147/85; TEMP 98.1; O2SAT 97
[2023-01-01] MEDS ORDERED: BISACODYL SUPP (10 MG) 10 MG/SUPP.RECT SUPP.RECT RC PRN (23:00)
[2023-01-01] MEDS ORDERED: Magnesium 1GM/D5W 100ML PREMIX PIGGYBACK IV ONE (23:00)
[2023-01-01] MEDS: ENOXAPARIN SODIUM 40 MG/0.4 ML DISP.SYRIN SQ SCH (23:39)
[2023-01-01] MEDS: IV NS 0.9% 1,000 ML IV PRN (23:56)
[2023-01-02] MEDS ORDERED: PIPERACILLIN /TAZOBACTAM 3.375 G in IV D5W 50 ML IV SCH ×2
[2023-01-02 06:05] LABS: BASOPHILS % (AUTO) 0.3 % (0.0-2.0); EOSINOPHILS # (AUTO) 0.3 K/uL (0.0-0.7); EOSINOPHILS % (AUTO) 3.4 % (0.0-6.0); HEMATOCRIT 31 % (33-45); HEMOGLOBIN 9.8 g/dL (11.5-14.8); LYMPHOCYTES # (AUTO) 1.9 K/uL (0.8-4.8); LYMPHOCYTES % (AUTO) 23.3 % (20.0-44.0); MEAN CORPUSCULAR HEMOGLOBIN 31 PG (26.0-33.0); MEAN CORPUSCULAR HGB CONC 32 g/dl (31.0-36.0); MEAN CORPUSCULAR VOLUME 97 fL (82-100); MONOCYTES # (AUTO) 0.8 K/uL (0.1-1.30); MONOCYTES % (AUTO) 9.7 % (2.0-12.0); NEUTROPHILS # (AUTO) 5.2 K/uL (1.8-8.9); NEUTROPHILS % (AUTO) 63.3 % (43.0-81.0); PLATELET COUNT (AUTO) 270 K/uL (150-450); RED BLOOD CELL COUNT(AUTO) 3.16 MIL/uL (4.0-5.2); RED CELL DISTRIBUTION WIDTH 14.4 % (11.5-15.0); WHITE BLOOD COUNT (AUTO) 8.2 K/uL (4.3-11.0)
[2023-01-02 06:16] LABS: CALCIUM, SERUM 8.6 mg/dL (8.5-10.1); CREATININE 0.7 mg/dL (0.6-1.3); MAGNESIUM 2.2 mg/dL (1.8-2.4); PHOSPHORUS 3.6 mg/dL (2.5-4.9)
[2023-01-02 08:00] VITALS: BP 123/66; TEMP 98.1; O2SAT 96
[2023-01-02] MEDS: PIPERACILLIN /TAZOBACTAM 3.375 G in IV D5W 100 ML IV SCH ×3 (08:13→21:59)
[2023-01-02] MEDS ORDERED: DOCUSATE SODIUM 100 MG CAPSULE PO SCH (09:00)
[2023-01-02] MEDS ORDERED: PANTOPRAZOLE 40 MG VIAL IV SCH (09:00)
[2023-01-02] MEDS: PANTOPRAZOLE 40 MG/PACK PACK PO SCH (09:19)
[2023-01-02] MEDS: CHOLECALCIFEROL (VITAMIN D 3) 400 UNIT TABLET PO SCH (09:19)
[2023-01-02] MEDS: DOCUSATE SODIUM 100 MG CAPSULE PO SCH ×2 (09:19→17:09)
[2023-01-02] MEDS: ENALAPRIL MALEATE (5 MG) 5 MG TABLET PO SCH ×2 (09:20→21:59)
[2023-01-02] MEDS: MULTIVIT W/MINERALS 1 TAB TABLET PO SCH (09:20)
[2023-01-02] MEDS: CLOPIDOGREL BISULFATE 75 MG TABLET PO SCH (09:20)
[2023-01-02] MEDS: FERROUS SULFATE UDC 300 MG/5 ML UDC PO SCH (09:21)
[2023-01-02] MEDS: MEGESTROL ACETATE SUSP 400 MG/10 ML UDC PO SCH ×2 (09:21→17:09)
[2023-01-02] MEDS: METOPROLOL TARTRATE 25 MG TABLET PO SCH ×2 (09:21→21:57)
[2023-01-02] MEDS: ENSURE ENLIVE 237 ML LIQUID (VANILLA) PO SCH ×3 (09:22→17:09)
[2023-01-02 16:00] VITALS: BP 112/52; TEMP 98.5; O2SAT 96
[2023-01-02 20:00] VITALS: BP 116/56; TEMP 97.7; O2SAT 95
[2023-01-02] MEDS: POLYETHYLENE GLYCOL 3350 17 GM POWD.PACK PO SCH (21:57)
[2023-01-02] MEDS: MIRTAZAPINE 15 MG TABLET PO SCH (21:58)
[2023-01-02] MEDS: ENOXAPARIN SODIUM 40 MG/0.4 ML DISP.SYRIN SQ SCH (22:01)
[2023-01-02] MEDS: ATORVASTATIN 40 MG TABLET PO SCH (22:15)
[2023-01-03] MEDS: IV NS 0.9% 1,000 ML IV PRN ×2 (03:37→03:40)
[2023-01-03] MEDS: PIPERACILLIN /TAZOBACTAM 3.375 G in IV D5W 100 ML IV SCH ×3 (05:30→20:56)
[2023-01-03 06:21] VITALS: BP 120/61; O2SAT 96
[2023-01-03 07:00] VITALS: BP 119/55; TEMP 98.3; O2SAT 99
[2023-01-03] MEDS: CLOPIDOGREL BISULFATE 75 MG TABLET PO SCH (09:16)
[2023-01-03] MEDS: PANTOPRAZOLE 40 MG/PACK PACK PO SCH (09:16)
[2023-01-03] MEDS: FERROUS SULFATE UDC 300 MG/5 ML UDC PO SCH (09:16)
[2023-01-03] MEDS: DOCUSATE SODIUM 100 MG CAPSULE PO SCH ×2 (09:16→16:18)
[2023-01-03] MEDS: MEGESTROL ACETATE SUSP 400 MG/10 ML UDC PO SCH ×2 (09:16→16:18)
[2023-01-03] MEDS: CHOLECALCIFEROL (VITAMIN D 3) 400 UNIT TABLET PO SCH (09:16)
[2023-01-03] MEDS: MULTIVIT W/MINERALS 1 TAB TABLET PO SCH (09:16)
[2023-01-03] MEDS: ENSURE ENLIVE 237 ML LIQUID (VANILLA) PO SCH ×3 (09:50→17:21)
[2023-01-03] MEDS: ENALAPRIL MALEATE (5 MG) 5 MG TABLET PO SCH ×2 (09:51→20:55)
[2023-01-03] MEDS: METOPROLOL TARTRATE 25 MG TABLET PO SCH ×2 (09:51→20:56)
[2023-01-03 16:00] VITALS: BP 96/66; TEMP 98.4; O2SAT 94
[2023-01-03 20:00] VITALS: BP 111/62; TEMP 97.8; O2SAT 94
[2023-01-03] MEDS: ENOXAPARIN SODIUM 40 MG/0.4 ML DISP.SYRIN SQ SCH (20:59)
[2023-01-03] MEDS: ATORVASTATIN 40 MG TABLET PO SCH (21:53)
[2023-01-03] MEDS: MIRTAZAPINE 15 MG TABLET PO SCH (21:54)
[2023-01-03] MEDS: POLYETHYLENE GLYCOL 3350 17 GM POWD.PACK PO SCH (21:54)
[2023-01-04] MEDS: PIPERACILLIN /TAZOBACTAM 3.375 G in IV D5W 100 ML IV SCH ×3 (05:29→21:23)
[2023-01-04 08:00] VITALS: BP 147/79; TEMP 99.1; O2SAT 94
[2023-01-04] MEDS: DOCUSATE SODIUM 100 MG CAPSULE PO SCH ×2 (08:33→16:24)
[2023-01-04] MEDS: ENALAPRIL MALEATE (5 MG) 5 MG TABLET PO SCH ×2 (08:33→21:20)
[2023-01-04] MEDS: FERROUS SULFATE UDC 300 MG/5 ML UDC PO SCH (08:33)
[2023-01-04] MEDS: MEGESTROL ACETATE SUSP 400 MG/10 ML UDC PO SCH ×2 (08:33→16:24)
[2023-01-04] MEDS: MULTIVIT W/MINERALS 1 TAB TABLET PO SCH (08:33)
[2023-01-04] MEDS: PANTOPRAZOLE 40 MG/PACK PACK PO SCH (08:33)
[2023-01-04] MEDS: CHOLECALCIFEROL (VITAMIN D 3) 400 UNIT TABLET PO SCH (08:33)
[2023-01-04] MEDS: METOPROLOL TARTRATE 25 MG TABLET PO SCH ×2 (08:34→21:20)
[2023-01-04] MEDS: ENSURE ENLIVE 237 ML LIQUID (VANILLA) PO SCH ×3 (08:34→16:24)
[2023-01-04] MEDS: CLOPIDOGREL BISULFATE 75 MG TABLET PO SCH (08:34)
[2023-01-04 12:00] VITALS: BP 111/56; TEMP 99.9; O2SAT 98
[2023-01-04 16:00] VITALS: BP 119/72; TEMP 98.6; O2SAT 97
[2023-01-04 20:00] VITALS: BP 110/59; TEMP 98.2; O2SAT 97
[2023-01-04] MEDS: ENOXAPARIN SODIUM 40 MG/0.4 ML DISP.SYRIN SQ SCH (21:18)
[2023-01-04] MEDS: POLYETHYLENE GLYCOL 3350 17 GM POWD.PACK PO SCH (21:18)
[2023-01-04] MEDS: ATORVASTATIN 40 MG TABLET PO SCH (21:19)
[2023-01-04] MEDS: MIRTAZAPINE 15 MG TABLET PO SCH (21:19)
[2023-01-04] MEDS: IV NS 0.9% 1,000 ML IV PRN (21:35)
[2023-01-05] MEDS: PIPERACILLIN /TAZOBACTAM 3.375 G in IV D5W 100 ML IV SCH ×2 (04:44→12:56)
[2023-01-05 05:48] LABS: BASOPHILS % (AUTO) 0.2 % (0.0-2.0); EOSINOPHILS # (AUTO) 0.3 K/uL (0.0-0.7); EOSINOPHILS % (AUTO) 2.9 % (0.0-6.0); HEMATOCRIT 31 % (33-45); LYMPHOCYTES # (AUTO) 1.6 K/uL (0.8-4.8); LYMPHOCYTES % (AUTO) 17.4 % (20.0-44.0); MEAN CORPUSCULAR HEMOGLOBIN 31 PG (26.0-33.0); MEAN CORPUSCULAR HGB CONC 33 g/dl (31.0-36.0); MEAN CORPUSCULAR VOLUME 94 fL (82-100); MONOCYTES # (AUTO) 0.7 K/uL (0.1-1.30); MONOCYTES % (AUTO) 7.5 % (2.0-12.0); NEUTROPHILS # (AUTO) 6.8 K/uL (1.8-8.9); PLATELET COUNT (AUTO) 267 K/uL (150-450); RED BLOOD CELL COUNT(AUTO) 3.27 MIL/uL (4.0-5.2); RED CELL DISTRIBUTION WIDTH 14.7 % (11.5-15.0); WHITE BLOOD COUNT (AUTO) 9.5 K/uL (4.3-11.0)
[2023-01-05 06:02] LABS: CALCIUM, SERUM 8.7 mg/dL (8.5-10.1); CREATININE 0.7 mg/dL (0.6-1.3); POTASSIUM 4.6 mmol/L (3.5-5.1)
[2023-01-05 07:00] VITALS: BP 148/71; TEMP 97.8; O2SAT 98
[2023-01-05] MEDS: FERROUS SULFATE UDC 300 MG/5 ML UDC PO SCH (09:56)
[2023-01-05] MEDS: PANTOPRAZOLE 40 MG/PACK PACK PO SCH (09:56)
[2023-01-05] MEDS: MEGESTROL ACETATE SUSP 400 MG/10 ML UDC PO SCH ×2 (09:56→16:28)
[2023-01-05] MEDS: DOCUSATE SODIUM 100 MG CAPSULE PO SCH ×2 (09:57→16:28)
[2023-01-05] MEDS: ENALAPRIL MALEATE (5 MG) 5 MG TABLET PO SCH ×2 (09:57→21:13)
[2023-01-05] MEDS: CLOPIDOGREL BISULFATE 75 MG TABLET PO SCH (09:57)
[2023-01-05] MEDS: ENSURE ENLIVE 237 ML LIQUID (VANILLA) PO SCH ×3 (09:57→16:28)
[2023-01-05] MEDS: CHOLECALCIFEROL (VITAMIN D 3) 400 UNIT TABLET PO SCH (09:57)
[2023-01-05] MEDS: MULTIVIT W/MINERALS 1 TAB TABLET PO SCH (09:58)
[2023-01-05] MEDS: METOPROLOL TARTRATE 25 MG TABLET PO SCH ×2 (09:58→21:13)
[2023-01-05 16:00] VITALS: BP 119/61; TEMP 98.4; O2SAT 97
[2023-01-05 20:00] VITALS: BP 103/62; TEMP 97.7; O2SAT 95
[2023-01-05] MEDS ORDERED: NA PHOS,M-B/NA PHOS,DI-BA 1 EA ENEMA RC PRN (20:00)
[2023-01-05] MEDS: MIRTAZAPINE 15 MG TABLET PO SCH (21:12)
[2023-01-05] MEDS: ATORVASTATIN 40 MG TABLET PO SCH (21:12)
[2023-01-05] MEDS: POLYETHYLENE GLYCOL 3350 17 GM POWD.PACK PO SCH (21:14)
[2023-01-05] MEDS: ENOXAPARIN SODIUM 40 MG/0.4 ML DISP.SYRIN SQ SCH (21:14)
[2023-01-05] MEDS ORDERED: AMOX/CLAVULANATE 250 MG TABLET ONE (21:30)
[2023-01-05] MEDS ORDERED: AMOX/CLAVULANATE 875 MG TABLET ONE (23:13)
[2023-01-05] MEDS: AMOX/CLAVULANATE 875 MG TABLET PO SCH (23:22)
[2023-01-06] MEDS: IV NS 0.9% 1,000 ML IV PRN (03:43)
[2023-01-06 07:00] VITALS: BP 122/55; TEMP 98; O2SAT 95
[2023-01-06] MEDS: PANTOPRAZOLE 40 MG/PACK PACK PO SCH (09:58)
[2023-01-06] MEDS: MULTIVIT W/MINERALS 1 TAB TABLET PO SCH (09:58)
[2023-01-06] MEDS: MEGESTROL ACETATE SUSP 400 MG/10 ML UDC PO SCH (09:58)
[2023-01-06] MEDS: DOCUSATE SODIUM 100 MG CAPSULE PO SCH (09:58)
[2023-01-06] MEDS: FERROUS SULFATE UDC 300 MG/5 ML UDC PO SCH (09:58)
[2023-01-06] MEDS: CHOLECALCIFEROL (VITAMIN D 3) 400 UNIT TABLET PO SCH (09:58)
[2023-01-06] MEDS: CLOPIDOGREL BISULFATE 75 MG TABLET PO SCH (09:59)
[2023-01-06] MEDS: ENALAPRIL MALEATE (5 MG) 5 MG TABLET PO SCH (09:59)
[2023-01-06 10:00] VITALS: BP 122/55
[2023-01-06] MEDS: METOPROLOL TARTRATE 25 MG TABLET PO SCH (10:00)
[2023-01-06] MEDS: ENSURE ENLIVE 237 ML LIQUID (VANILLA) PO SCH ×2 (10:00→13:21)
[2023-01-06] MEDS: AMOX/CLAVULANATE 875 MG TABLET PO SCH (11:09)
== END 2023-01-06 15:00 | DRG 463 ==
LOC: ER 14:55 → MED 20:33
PROVIDERS: ADMIT Nurse Practitioner Acute Care
DX: N13.6 Pyonephrosis (principal); G93.41 Metabolic encephalopathy; D68.59 Other primary thrombophilia; E87.20 Acidosis, unspecified; E44.0 Moderate protein-calorie malnutrition; E88.09 Other disorders of plasma-protein metabolism, not elsewhere classified; K56.7 Ileus, unspecified; R62.7 Adult failure to thrive; N20.0 Calculus of kidney; I11.0 Hypertensive heart disease with heart failure; B96.20 Unspecified Escherichia coli [E. coli] as the cause of diseases classified elsewhere; D64.9 Anemia, unspecified; E11.9 Type 2 diabetes mellitus without complications; E66.9 Obesity, unspecified; E78.5 Hyperlipidemia, unspecified; E83.42 Hypomagnesemia; F03.90 Unspecified dementia, unspecified severity, without behavioral disturbance, psychotic disturbance, mood disturbance, and anxiety; I25.2 Old myocardial infarction; I50.9 Heart failure, unspecified; K56.41 Fecal impaction; M19.90 Unspecified osteoarthritis, unspecified site; Z20.822 Contact with and (suspected) exposure to COVID-19; Z79.02 Long term (current) use of antithrombotics/antiplatelets; Z79.899 Other long term (current) drug therapy; Z86.73 Personal history of transient ischemic attack (TIA), and cerebral infarction without residual deficits
CPT/HCPCS: 36410; 36415; 36600; 70450-TC; 71045-TC; 74018; 80048-TC; 80076-TC; 81001; 83605-TC; 83690-TC; 83735-TC; 84100-TC; 85025-TC; 87040-TC; 87081-TC; 87086-TC; A4223; G0378; J1650; J2543; J3475; J7030; J7060

== ENCOUNTER 2023-05-10 09:39 | Inpatient (IN) | payer OTHER ==
[~2023-05-10] VITALS: Ht 162.6 cm; Wt 49.9 kg
[~2023-05-10 09:39] MED LIST changes: -ASCO-352 PO; +CHOL500052 PO; +CLOP75TA15 PO; +CRAN250C PO; +FERR220S2 PO; +LACT-246 PO; +MEGE400O5 PO; +MIRT-121 PO; +OMEP1PAC7 PO
[2023-05-10] MEDS ORDERED: VANCOMYCIN 1 GM in IV D5W 250 ML IV ONE (10:00)
[2023-05-10] MEDS ORDERED: CEFEPIME 1 GM in IV D5W 50 ML IV ONE (10:00)
[2023-05-10] MEDS ORDERED: SENN-261 PO (10:36)
[2023-05-10] MEDS ORDERED: FERR300L PO (10:36)
[2023-05-10] MEDS ORDERED: PANT40TA2 PO (10:36)
[2023-05-10 11:27] LABS: BASOPHILS % (AUTO) 0.3 % (0.0-2.0); EOSINOPHILS # (AUTO) 0.2 K/uL (0.0-0.7); EOSINOPHILS % (AUTO) 1.5 % (0.0-6.0); HEMATOCRIT 37 % (33-45); HEMOGLOBIN 12.2 g/dL (11.5-14.8); LYMPHOCYTES # (AUTO) 2.6 K/uL (0.8-4.8); LYMPHOCYTES % (AUTO) 20.5 % (20.0-44.0); MEAN CORPUSCULAR HEMOGLOBIN 31 PG (26.0-33.0); MEAN CORPUSCULAR HGB CONC 33 g/dl (31.0-36.0); MEAN CORPUSCULAR VOLUME 95 fL (82-100); MONOCYTES % (AUTO) 7.6 % (2.0-12.0); NEUTROPHILS # (AUTO) 8.8 K/uL (1.8-8.9); NEUTROPHILS % (AUTO) 70.1 % (43.0-81.0); PLATELET COUNT (AUTO) 390 K/uL (150-450); RED BLOOD CELL COUNT(AUTO) 3.87 MIL/uL (4.0-5.2); RED CELL DISTRIBUTION WIDTH 14.3 % (11.5-15.0); WHITE BLOOD COUNT (AUTO) 12.5 K/uL (4.3-11.0)
[2023-05-10 11:38] LABS: INR 1.04 (0.91-1.10); PARTIAL THROMBOPLASTIN TIME 25.6 SEC (24.3-34.3)
[2023-05-10 12:17] LABS: LACTIC ACID 2.9 mmol/L (0.4-2.0)
[2023-05-10 12:19] LABS: CALCIUM, SERUM 9.1 mg/dL (8.5-10.1); CARBON DIOXIDE 19 mmol/L (21-32); CHLORIDE 103 mmol/L (98-107); CREATININE 0.8 mg/dL (0.6-1.3); GLUCOSE 98 mg/dL (74-106); POTASSIUM 3.9 mmol/L (3.5-5.1); SODIUM SERUM 134 mmol/L (136-145); UREA NITROGEN, BLOOD 24 mg/dL (7-18)
[2023-05-10 12:22] LABS: APPEARANCE,URINE TURBID (CLEAR); BILIRUBIN,URINE NEGATIVE (NEGATIVE); BLOOD, URINE 3+ Ery/uL (NEGATIVE); COLOR,URINE DARK YELLOW (YELLOW); KETONES,URINE NEGATIVE (NEGATIVE); LEUKOCYTE ESTERASE ,URINE 3+ (NEGATIVE); NITRITE, URINE NEGATIVE (NEGATIVE); PROTEIN,URINE 2+ mg/dl (NEGATIVE); UGLUCOSE NEGATIVE (NEGATIVE); UROBILINOGEN,URINE 0.2 EU/dL (0.2)
[2023-05-10 12:26] LABS: ALANINE AMINOTRANSFERASE 28 U/L (12-78); ALBUMIN 2.9 g/dL (3.4-5.0); ALKALINE PHOSPHATASE 77 U/L (46-116); ASPARTATE AMINOTRANSFERASE 20 U/L (15-37); BILIRUBIN,DIRECT 0.1 mg/dL (0.0-0.2); BILIRUBIN,TOTAL 0.5 mg/dL (0.2-1.0); TOTAL PROTEIN, SERUM 8.1 g/dL (6.4-8.2)
[2023-05-10 12:26] LABS: ADD URINE CULTURE YES; BACTERIA,URINE Many /HPF (None Seen); SQUAMOUS EPITHELIAL CELL,UR Rare /HPF (None Seen); WBC,URINE TOO NUMEROUS TO COUN /HPF (0-3)
[2023-05-10] MEDS ORDERED: ACETAMINOPHEN 325 MG TABLET PO PRN (13:00)
[2023-05-10] MEDS ORDERED: MAGNESIUM HYDROXIDE 30 ML UDC PO PRN (13:00)
[2023-05-10] MEDS ORDERED: MORPHINE SULFATE INJ 2 MG/ML DISP.SYRIN IV PRN (13:00)
[2023-05-10] MEDS ORDERED: HYDROCODONE/APAP 5/325MG TABLET PO PRN (13:00)
[2023-05-10] MEDS ORDERED: Z GUARD REMEDY 4 OZ OINT TP PRN (13:00)
[2023-05-10] MEDS ORDERED: MAG HYDROX/AL HYDROX/SIMETH 30 ML UDC PO PRN (13:00)
[2023-05-10] MEDS ORDERED: ZOLPIDEM TARTRATE 5 MG TABLET PO PRN (13:00)
[2023-05-10] MEDS ORDERED: ONDANSETRON HCL/PF 4 MG/2 ML VIAL IVP PRN (13:00)
[2023-05-10] MEDS ORDERED: PANTOPRAZOLE 40 MG VIAL ONE (13:22)
[2023-05-10] MEDS: PANTOPRAZOLE 40 MG VIAL IV SCH (13:28)
[2023-05-10] MEDS: IV NS 0.9% 1,000 ML IV PRN (18:20)
[2023-05-10] MEDS ORDERED: LORAZEPAM INJ 2 MG/ML VIAL IV PRN (18:30)
[2023-05-10] MEDS ORDERED: CEFEPIME 1 GM in IV D5W 50 ML IV SCH (21:00)
[2023-05-10] MEDS: CEFEPIME 2 GM in IV D5W 100 ML IV SCH (22:05)
[2023-05-10] MEDS: VANCOMYCIN 500 MG in IV D5W 100ml IV SCH (23:09)
[2023-05-11] MEDS: ENOXAPARIN SODIUM 40 MG/0.4 ML DISP.SYRIN SQ SCH ×2 (00:05→22:19)
[2023-05-11 07:29] LABS: BASOPHILS % (AUTO) 0.2 % (0.0-2.0); EOSINOPHILS # (AUTO) 0.2 K/uL (0.0-0.7); HEMATOCRIT 33 % (33-45); HEMOGLOBIN 11.1 g/dL (11.5-14.8); LYMPHOCYTES # (AUTO) 1.8 K/uL (0.8-4.8); MEAN CORPUSCULAR HEMOGLOBIN 32 PG (26.0-33.0); MEAN CORPUSCULAR HGB CONC 34 g/dl (31.0-36.0); MEAN CORPUSCULAR VOLUME 95 fL (82-100); MONOCYTES # (AUTO) 0.7 K/uL (0.1-1.30); MONOCYTES % (AUTO) 7.5 % (2.0-12.0); NEUTROPHILS # (AUTO) 6.7 K/uL (1.8-8.9); NEUTROPHILS % (AUTO) 71.3 % (43.0-81.0); PLATELET COUNT (AUTO) 315 K/uL (150-450); RED BLOOD CELL COUNT(AUTO) 3.49 MIL/uL (4.0-5.2); RED CELL DISTRIBUTION WIDTH 14.1 % (11.5-15.0); WHITE BLOOD COUNT (AUTO) 9.3 K/uL (4.3-11.0)
[2023-05-11 07:33] LABS: CALCIUM, SERUM 8.7 mg/dL (8.5-10.1); CREATININE 0.7 mg/dL (0.6-1.3); MAGNESIUM 1.9 mg/dL (1.8-2.4); PHOSPHORUS 4.1 mg/dL (2.5-4.9); POTASSIUM 4.2 mmol/L (3.5-5.1)
[2023-05-11] MEDS: ENSURE ENLIVE 237 ML LIQUID (VANILLA) PO SCH ×3 (09:00→17:05)
[2023-05-11] MEDS: PANTOPRAZOLE 40 MG VIAL IV SCH (09:31)
[2023-05-11] MEDS: CEFEPIME 2 GM in IV D5W 100 ML IV SCH ×2 (09:31→22:19)
[2023-05-11] MEDS: VANCOMYCIN 500 MG in IV D5W 100ml IV SCH ×2 (10:39→23:55)
[2023-05-11] MEDS: IV NS 0.9% 1,000 ML IV PRN (15:24)
[2023-05-11 20:00] VITALS: BP_SYST 111; BP_SYST 124; BP_DIAS 64; BP_DIAS 98; TEMP 97.9; TEMP 98.4; O2SAT 100; O2SAT 97
[2023-05-12] VITALS (8 sets, daily range): BP systolic 105–131; BP diastolic 53–66; TEMP 98.2–98.8; O2SAT 96–98
[2023-05-12 07:46] LABS: CALCIUM, SERUM 8.7 mg/dL (8.5-10.1); CREATININE 0.7 mg/dL (0.6-1.3); MAGNESIUM 1.9 mg/dL (1.8-2.4); PHOSPHORUS 3.4 mg/dL (2.5-4.9); POTASSIUM 3.9 mmol/L (3.5-5.1)
[2023-05-12] MEDS: CEFEPIME 2 GM in IV D5W 100 ML IV SCH ×2 (08:03→22:08)
[2023-05-12] MEDS: PANTOPRAZOLE 40 MG VIAL IV SCH (08:03)
[2023-05-12] MEDS: ENSURE ENLIVE 237 ML LIQUID (VANILLA) PO SCH ×3 (08:03→16:27)
[2023-05-12] MEDS: PANTOPRAZOLE 40 MG TABLET.DR PO SCH (08:29)
[2023-05-12 09:45] LABS: BASOPHILS % (AUTO) 0.2 % (0.0-2.0); EOSINOPHILS # (AUTO) 0.2 K/uL (0.0-0.7); EOSINOPHILS % (AUTO) 1.9 % (0.0-6.0); HEMATOCRIT 34 % (33-45); HEMOGLOBIN 10.9 g/dL (11.5-14.8); LYMPHOCYTES # (AUTO) 1.9 K/uL (0.8-4.8); LYMPHOCYTES % (AUTO) 20.5 % (20.0-44.0); MEAN CORPUSCULAR HEMOGLOBIN 31 PG (26.0-33.0); MEAN CORPUSCULAR HGB CONC 32 g/dl (31.0-36.0); MEAN CORPUSCULAR VOLUME 95 fL (82-100); MONOCYTES # (AUTO) 0.7 K/uL (0.1-1.30); MONOCYTES % (AUTO) 7.7 % (2.0-12.0); NEUTROPHILS # (AUTO) 6.4 K/uL (1.8-8.9); NEUTROPHILS % (AUTO) 69.7 % (43.0-81.0); PLATELET COUNT (AUTO) 307 K/uL (150-450); RED BLOOD CELL COUNT(AUTO) 3.52 MIL/uL (4.0-5.2); RED CELL DISTRIBUTION WIDTH 14.3 % (11.5-15.0); WHITE BLOOD COUNT (AUTO) 9.2 K/uL (4.3-11.0)
[2023-05-12] MEDS: VANCOMYCIN 500 MG in IV D5W 100ml IV SCH ×2 (10:36→23:44)
[2023-05-12] MEDS: ENOXAPARIN SODIUM 40 MG/0.4 ML DISP.SYRIN SQ SCH (22:29)
[2023-05-13 02:00] VITALS: BP 123/68; TEMP 98.9; O2SAT 98
[2023-05-13 05:02] VITALS: BP 130/68; TEMP 98.9; O2SAT 98
[2023-05-13] MEDS: ENSURE ENLIVE 237 ML LIQUID (VANILLA) PO SCH ×3 (08:02→17:30)
[2023-05-13 09:00] VITALS: BP 118/69; TEMP 98.4; O2SAT 98
[2023-05-13] MEDS: PANTOPRAZOLE 40 MG TABLET.DR PO SCH (09:16)
[2023-05-13] MEDS: CEFEPIME 2 GM in IV D5W 100 ML IV SCH (09:22)
[2023-05-13 09:53] LABS: BASOPHILS % (AUTO) 0.2 % (0.0-2.0); EOSINOPHILS # (AUTO) 0.2 K/uL (0.0-0.7); EOSINOPHILS % (AUTO) 1.8 % (0.0-6.0); HEMATOCRIT 36 % (33-45); HEMOGLOBIN 11.8 g/dL (11.5-14.8); LYMPHOCYTES # (AUTO) 2.3 K/uL (0.8-4.8); LYMPHOCYTES % (AUTO) 22.2 % (20.0-44.0); MEAN CORPUSCULAR HEMOGLOBIN 32 PG (26.0-33.0); MEAN CORPUSCULAR HGB CONC 33 g/dl (31.0-36.0); MEAN CORPUSCULAR VOLUME 96 fL (82-100); MONOCYTES # (AUTO) 0.7 K/uL (0.1-1.30); MONOCYTES % (AUTO) 6.4 % (2.0-12.0); NEUTROPHILS # (AUTO) 7.1 K/uL (1.8-8.9); NEUTROPHILS % (AUTO) 69.4 % (43.0-81.0); PLATELET COUNT (AUTO) 336 K/uL (150-450); RED BLOOD CELL COUNT(AUTO) 3.74 MIL/uL (4.0-5.2); RED CELL DISTRIBUTION WIDTH 13.9 % (11.5-15.0); WHITE BLOOD COUNT (AUTO) 10.3 K/uL (4.3-11.0)
[2023-05-13] MEDS: VANCOMYCIN 500 MG in IV D5W 100ml IV SCH (10:06)
[2023-05-13 10:12] LABS: CALCIUM, SERUM 9.2 mg/dL (8.5-10.1); CREATININE 0.8 mg/dL (0.6-1.3); MAGNESIUM 1.9 mg/dL (1.8-2.4); PHOSPHORUS 2.9 mg/dL (2.5-4.9); POTASSIUM 3.8 mmol/L (3.5-5.1)
[2023-05-13] MEDS ORDERED: NITR100C6 PO (10:24)
[2023-05-13 13:00] VITALS: BP 104/73; TEMP 98.4; O2SAT 98
== END 2023-05-13 18:02 | DRG 463 ==
LOC: ER 09:49 → MEDSG1 13:34 → TELE1 22:45
PROVIDERS: ADMIT Nurse Practitioner Acute Care; ATTEND Internal Medicine
DX: N39.0 Urinary tract infection, site not specified (principal); G93.41 Metabolic encephalopathy; E87.20 Acidosis, unspecified; D68.59 Other primary thrombophilia; E44.0 Moderate protein-calorie malnutrition; E88.09 Other disorders of plasma-protein metabolism, not elsewhere classified; E87.1 Hypo-osmolality and hyponatremia; I50.9 Heart failure, unspecified; I11.0 Hypertensive heart disease with heart failure; Z20.822 Contact with and (suspected) exposure to COVID-19; I25.2 Old myocardial infarction; D64.9 Anemia, unspecified; M19.90 Unspecified osteoarthritis, unspecified site; E87.5 Hyperkalemia; F03.94 Unspecified dementia, unspecified severity, with anxiety; F03.93 Unspecified dementia, unspecified severity, with mood disturbance; Z79.02 Long term (current) use of antithrombotics/antiplatelets; Z79.899 Other long term (current) drug therapy; E78.5 Hyperlipidemia, unspecified; N20.0 Calculus of kidney; F01.50 Vascular dementia, unspecified severity, without behavioral disturbance, psychotic disturbance, mood disturbance, and anxiety; Z86.73 Personal history of transient ischemic attack (TIA), and cerebral infarction without residual deficits; Z87.440 Personal history of urinary (tract) infections; F32.9 Major depressive disorder, single episode, unspecified; K21.9 Gastro-esophageal reflux disease without esophagitis; Z74.09 Other reduced mobility; E11.9 Type 2 diabetes mellitus without complications; B96.89 Other specified bacterial agents as the cause of diseases classified elsewhere; R79.89 Other specified abnormal findings of blood chemistry; B96.20 Unspecified Escherichia coli [E. coli] as the cause of diseases classified elsewhere
CPT/HCPCS: 36415; 71045-TC; 80048-TC; 80076-TC; 80202-TC; 81001; 82962-TC; 83605-TC; 83735-TC; 84100-TC; 84484-TC; 85025-TC; 85730-TC; 87040-TC; 87081-TC; 87086-TC; 92526; 92611-TC; 97110-TC; 97112-TC; 97530-TC; A4223; C9113; G0378; J0692; J1650; J2060; J3370; J7030; J7050; J7060